=== PATIENT | female | born 1985 | race Caucasian/White ===

== ENCOUNTER 2016-08-25 18:58 | Emergency (ER) | payer OTHER ==
--- NOTE | 2016-08-25 20:11 | ED CLINICAL REPORT ---
Clinical Report - Physicians/Mid Levels [facility] [address] [place] [address] 08/25/2016 19:00 Patient: CARLY WOODS Time Seen: 22:00 Aug 25 2016. Arrived- By private vehicle. Historian- patient. HISTORY OF PRESENT ILLNESS Chief Complaint: PELVIC PAIN. 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 The symptoms are described as mild. No urinary frequency or urgency of urination. (Patient reports she is about 17 weeks , reports area of swelling on her labia and her vaginal region over the last 3-4 days, reports areas worsening. Denies any drainage. She has had multiple of such in the past, who usually self drained, and she had not had to seek care for any of them in the past. Denies any vaginal bleeding or contractions. Patient is under the care of a production inspector as well as Dr. Oh also. Denies any recent antibiotic or medication changes.). REVIEW OF SYSTEMS No vomiting or cough. All systems otherwise negative, except as recorded above. PAST HISTORY Problems: URI. Mother has alpha 1 protein disease but pt has not been checked. Contusion. LNMP - Last Normal Menstrual Period. . Additional Surgeries: Dilatation & Curettage. Medications: Vitamins Oral. Allergies: Sulfa Medications . SOCIAL HISTORY Former smoker. No drug use. ADDITIONAL NOTES The nursing notes have been reviewed. PHYSICAL EXAM Vital Signs: 08/25/2016 19:10 BP: 126/66. HR: 80. RR: 20. O2 saturation: 94%. Temp: 98.3 F. Pain level now: 9/10. Appearance: Alert. No acute distress. Neck: Neck supple. No lymphadenopathy. CVS: Heart sounds normal. Respiratory: No respiratory distress. Abdomen: Soft and nontender. Gravid uterus palpable to umbilicus. : Bimanual exam performed. (right lateral labia with swelling, tenderness, erythema, warmth, fluctulance. no protrusion into the vagina vault.). Skin: Skin warm. Normal skin color. Neuro: Oriented X 3. PROGRESS AND PROCEDURES Incision & Drainage of Abscess: Time: 2009. Time-out completed immediately before the procedure. The abscess is located in the bartholin's gland. The risks of the procedure, benefits and alternatives were explained. Consent was obtained. Local anesthesia provided using 1% lidocaine. A moderate amount of pus was drained. Word catheter was placed. Sample obtained for cultures. ( assisted with DR. Beverly, initial incicision and small lateral incicion made for penetration, Word cath placed with 3.5 cc of FLuid). Course of Care: Pt examined and procedure performed with DR. Beverly. Pt in no distress. Stable. Tachy with procedure 2/2 to pain. Afebrile. at this time can be managed outpatient for this, no complications. H/o similar. Pt has good f/u. Discussed opiod vs tylenol use, pt understands risk, cat c, given acute infection will rx for small quantity. 08/25/2016 20:30 BP: 128/65. HR: 81. RR: 22. O2 saturation: 96%. Patient is stable. Symptoms better. Patient/family counseled. Disposition: Discharged. CLINICAL IMPRESSION Bartholin's abscess with incision and drainage. INSTRUCTIONS (warm sitz bath antibiotics follow up in 1-2 days for removal of 3-4 mL of fluid from the WORD catheter, do not remove this your self). Warnings: Further evaluation is necessary. Prescription Medications: Hydrocodone/APAP 5mg / 325mg: take 1 orally every 6 hours as needed for pain. Dispense five (5). No refill. Augmentin 875 mg: take 1 tablet orally every 12 hours for 7 days. Dispense fourteen (14). No refills. Substitution is permissible. OTC Medications: Take acetaminophen (Tylenol, Datril, etc.) according to label instructions. Available over the counter. Follow-up: Follow up with your doctor Friday. (Electronically signed by Lucy Lorenzo P.A.-C 08/25/2016 22:31)
--- NOTE | 2016-08-25 20:11 | ED CLINICAL REPORT ---
Clinical Report - Physicians/Mid Levels [facility] [address] [place] [address] 08/25/2016 19:00 Patient: CARLY WOODS Time Seen: 22:00 Aug 25 2016. Arrived- By private vehicle. Historian- patient. HISTORY OF PRESENT ILLNESS Chief Complaint: PELVIC PAIN. 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 The symptoms are described as mild. No urinary frequency or urgency of urination. (Patient reports she is about 17 weeks , reports area of swelling on her labia and her vaginal region over the last 3-4 days, reports areas worsening. Denies any drainage. She has had multiple of such in the past, who usually self drained, and she had not had to seek care for any of them in the past. Denies any vaginal bleeding or contractions. Patient is under the care of a comprehensive ophthalmologist as well as Dr. Oh also. Denies any recent antibiotic or medication changes.). REVIEW OF SYSTEMS No vomiting or cough. All systems otherwise negative, except as recorded above. PAST HISTORY Problems: URI. Mother has alpha 1 protein disease but pt has not been checked. Contusion. LNMP - Last Normal Menstrual Period. . Additional Surgeries: Dilatation & Curettage. Medications: Vitamins Oral. Allergies: Sulfa Medications . SOCIAL HISTORY Former smoker. No drug use. ADDITIONAL NOTES The nursing notes have been reviewed. PHYSICAL EXAM Vital Signs: 08/25/2016 19:10 BP: 126/66. HR: 80. RR: 20. O2 saturation: 94%. Temp: 98.3 F. Pain level now: 9/10. Appearance: Alert. No acute distress. Neck: Neck supple. No lymphadenopathy. CVS: Heart sounds normal. Respiratory: No respiratory distress. Abdomen: Soft and nontender. Gravid uterus palpable to umbilicus. : Bimanual exam performed. (right lateral labia with swelling, tenderness, erythema, warmth, fluctulance. no protrusion into the vagina vault.). Skin: Skin warm. Normal skin color. Neuro: Oriented X 3. PROGRESS AND PROCEDURES Incision & Drainage of Abscess: Time: 2009. Time-out completed immediately before the procedure. The abscess is located in the bartholin's gland. The risks of the procedure, benefits and alternatives were explained. Consent was obtained. Local anesthesia provided using 1% lidocaine. A moderate amount of pus was drained. Word catheter was placed. Sample obtained for cultures. ( assisted with DR. Beverly, initial incicision and small lateral incicion made for penetration, Word cath placed with 3.5 cc of FLuid). Course of Care: Pt examined and procedure performed with DR. Beverly. Pt in no distress. Stable. Tachy with procedure 2/2 to pain. Afebrile. at this time can be managed outpatient for this, no complications. H/o similar. Pt has good f/u. Discussed opiod vs tylenol use, pt understands risk, cat c, given acute infection will rx for small quantity. 08/25/2016 20:30 BP: 128/65. HR: 81. RR: 22. O2 saturation: 96%. Patient is stable. Symptoms better. Patient/family counseled. Disposition: Discharged. CLINICAL IMPRESSION Bartholin's abscess with incision and drainage. INSTRUCTIONS (warm sitz bath antibiotics follow up in 1-2 days for removal of 3-4 mL of fluid from the WORD catheter, do not remove this your self). Warnings: Further evaluation is necessary. Prescription Medications: Hydrocodone/APAP 5mg / 325mg: take 1 orally every 6 hours as needed for pain. Dispense five (5). No refill. Augmentin 875 mg: take 1 tablet orally every 12 hours for 7 days. Dispense fourteen (14). No refills. Substitution is permissible. OTC Medications: Take acetaminophen (Tylenol, Datril, etc.) according to label instructions. Available over the counter. Follow-up: Follow up with your doctor Friday. (Electronically signed by Lucy Lorenzo P.A.-C 08/25/2016 22:31)
--- NOTE | 2016-08-25 20:11 | ED ORDER SUMMARY ---
..... Patient: CARLY WOODS OrderSheet [facility] VisitID: [id number] [address] [place] [address] 30y, F Registration Date/Time: 08/25/2016 ORDER SHEET Weight: 81.6 kg (stated) Allergies: Sulfa Medications GENERAL ORDERS: Culture, Wound Surface (Incision) (R. bartholin cyst) Urgent (20:09 08/25/2016 EKdarryllekatarzyna P.A.-C) (Ack 20:10 AMcQuoid ER Tech1) (20:11 HSoule) MEDICATION ORDERS: Tylenol PO 1,000 mg (NOW) (19:46 08/25/2016 Selma R.N. verbal order read back to Sunny Ruibn.AAugusto-C) (19:47 SRoberts R.N.) Augmentin PO 875 mg (NOW) (20:08 08/25/2016 Sunny P.A.-C) (Ack 20:11 HSoule) (20:26 TLewis R.N.) IV FLUIDS: ORDER SHEET NOTES: [Electronically signed by Minh Petersen R.N. (20:33 08/25/2016)] [Electronically signed by Lucy LorenzoAAugusto-Taryn (22:31 08/25/2016)] [Electronically locked/signed by Minh Petersen R.N. (20:33 08/25/2016)]
--- NOTE | 2016-08-25 20:11 | ED ORDER SUMMARY ---
..... Patient: CARLY WOODS OrderSheet [facility] VisitID: [id number] [address] [place] [address] 30y, F Registration Date/Time: 08/25/2016 ORDER SHEET Weight: 81.6 kg (stated) Allergies: Sulfa Medications GENERAL ORDERS: Culture, Wound Surface (Incision) (R. bartholin cyst) Urgent (20:09 08/25/2016 EKdarryllekatarzyna P.A.-C) (Ack 20:10 AMcQuoid ER Tech1) (20:11 HSoule) MEDICATION ORDERS: Tylenol PO 1,000 mg (NOW) (19:46 08/25/2016 Selma R.N. verbal order read back to Sunny Rubin.AAugusto-C) (19:47 SRoberts R.N.) Augmentin PO 875 mg (NOW) (20:08 08/25/2016 Sunny P.A.-C) (Ack 20:11 HSoule) (20:26 TLewis R.N.) IV FLUIDS: ORDER SHEET NOTES: [Electronically signed by Minh Petersen R.N. (20:33 08/25/2016)] [Electronically signed by Lucy LorenzoAAugusto-Taryn (22:31 08/25/2016)] [Electronically locked/signed by Minh Petersen R.N. (20:33 08/25/2016)]
--- NOTE | 2016-08-25 20:11 | ED NURSING NOTES ---
Clinical Report - Nurses Located Within [facility] [address] [place] [address] 08/25/2016 19:00 [id number] Triage time 19:05 Aug 25 2016. Acuity: LEVEL 4. Chief Complaint: SKIN PROBLEM and BOIL and . Bartholin Gland Cyst. 19:15 08/25/16. SEPSIS SCREEN: Sepsis Screen: negative. Negative (no infection suspected/documented). KALANI COMA SCORE: Kalani Coma Scale: 15- eyes open spontaneously (4); best verbal response- oriented x 4 (5); best motor response- obeys commands (6). --19:15 Nova Self 19:10 08/25/16. BP: 126/66. HR: 80. RR: 20. O2 saturation: 94% on room air. Temp: 98.3 F (oral). Pain level now: 02/09. --19:15 Nova Self. Weight: 81.6 kg stated. Height/Length: 62 inches Per Patient. BMI: 32.9. --19:14 Nova Self. Medications Vitamins Oral. --19:13 Nova Self. Medication/allergy information source: the patient. --19:15 Nova Self. Allergies Sulfa Medications . --19:13 Nova Self. History Arrived by private vehicle. Historian: patient. Accompanied by family. Primary physician (Josh). Reported as located on the genitalia (Right side). This is a recurrent problem. (3 days). It is described as painful. ( Patient reports history of bartholin gland cyst. She reports that they usually resolve on their own. She noticed one about one week ago that seemed to be getting more painful and irritated. She states she now feels it is about to burst. She has done salt soaks and heating pad with no relief.). PAST MEDICAL HX: Immunizations: up-to-date. Last normal menstrual period- Apr 28. SOCIAL HX: Former smoker, end date 05/2016. History of drug use: marijuana. No alcohol use. No infectious disease exposure. ABUSE ASSESSMENT: No report of abuse. FALL RISK ASSESSMENT: Fall risk assessment completed. No fall risk identified. NUTRITIONAL RISK ASSESSMENT: The nutritional risk assessment revealed no deficiencies. FUNCTIONAL ASSESSMENT: Functional assessment: no impairments noted. LEARNING NEEDS ASSESSMENT: The learning needs assessment revealed no barriers. SKIN INTEGRITY ASSESSMENT: Skin integrity risk assessment completed. No skin integrity risk identified. --19:15 Nova Self. PROBLEMS: URI. Mother has alpha 1 protein disease but pt has not been checked. Contusion. LNMP - Last Normal Menstrual Period. . --19:13 Nova Self. ADDITIONAL SURGERIES: Dilatation & Curettage. --19:13 Nova Self. Interventions ID band on patient. To treatment room. --19:15 Nova Self. PHYSICAL ASSESSMENT 19:15 08/25/16. GENERAL / NEURO / PSYCH: Alert. The patient does not appear to be in acute distress. Oriented X 4. HEENT: Mucous membranes are pink. RESPIRATORY: Respirations not labored. CVS: Pulses within normal limits. SKIN: Skin is warm and dry. Single skin lesion with erythema, tenderness and increased warmth in the right groin- Approx size of golf ball. --19:15 Nova Self. NURSING PROGRESS NOTES 19:16 08/25/16. Pulse oximeter and NIBP monitor placed on patient; monitor alarms on. Patient gowned. Warming measures: blanket applied. Reassurance given to the patient. Two patient identifiers checked. Call light placed in reach. Side rails up x 1. Bed placed in lowest position. Brakes of bed on. Patient ready for evaluation- chart flagged and ED physician notified. --19:16 Nova Self ( Charting tagged under Nova Self was in fact charted by writing RN, Cyndi Meyers.). --19:18 Cyndi Meyers 19:47 08/25/2016 Tylenol (Acetaminophen) PO 1000 mg given. Allergies verified and confirmed 5 rights. --19:47 Ines Powers, R.N. I & D: Incision and Drainage of abscess performed by PA. Assisted by one nurse. The abscess is located on the perineum. Preparation: Incision and Drainage tray set up with 1% lidocaine. Procedure; a large amount of pus was drained. Word catheter was placed. Sample obtained for cultures. Post-procedure: she was stable, no complications and bleeding controlled. Total time of assist / procedure: 15 minutes. --20:25 Cyndi Meyers 20:26 08/25/2016 Augmentin (Amoxicillin-Pot Clavulanate) PO 875 mg given. Allergies verified and confirmed 5 rights. --20:26 Minh Pteersen R.N. DISPOSITION / DISCHARGE Departure time: 2029. Condition at departure: improved. ( Pt was having increased pain and the PA was called back in to speak to the pt. Pt was given a script for pain meds. Pt was with a friend to get the script filled.). No learning barriers present. Discharge instructions provided and reviewed with the patient. Reviewed medication(s) side effects, precautions, dosing and course information. Prescription(s) given to the patient (hydrocodone antibioitic). Patient verbalized understanding. Written instructions provided in Swedish. The patient was discharged by the physician. She was discharged home and accompanied by gas prover. She left the Emergency Department ambulatory and via private vehicle. Twister Hand driving. --20:33 Minh Petersen R.N. 20:30 08/25/16. BP: 128/65. HR: 81. RR: 22. O2 saturation: 96%. Pain level now 8/10. --20:33 Minh Petersen R.N. Locked/Released at 08/25/2016 20:33 by Minh Petersen R.N.
--- NOTE | 2016-08-25 20:11 | ED NURSING NOTES ---
Clinical Report - Nurses [facility] [address] [place] [address] 08/25/2016 19:00 [id number] TRI[facility] Triage time 19:05 Aug 25 2016. Acuity: LEVEL 4. Chief Complaint: SKIN PROBLEM and BOIL and . Bartholin Gland Cyst. 19:15 08/25/16. SEPSIS SCREEN: Sepsis Screen: negative. Negative (no infection suspected/documented). KALANI COMA SCORE: Kalani Coma Scale: 15- eyes open spontaneously (4); best verbal response- oriented x 4 (5); best motor response- obeys commands (6). --19:15 Nova Self 19:10 08/25/16. BP: 126/66. HR: 80. RR: 20. O2 saturation: 94% on room air. Temp: 98.3 F (oral). Pain level now: 02/09. --19:15 Nova Self. Weight: 81.6 kg stated. Height/Length: 62 inches Per Patient. BMI: 32.9. --19:14 Nova Self. Medications Vitamins Oral. --19:13 Nova Self. Medication/allergy information source: the patient. --19:15 Nova Self. Allergies Sulfa Medications . --19:13 Nova Self. History Arrived by private vehicle. Historian: patient. Accompanied by family. Primary physician (Josh). Reported as located on the genitalia (Right side). This is a recurrent problem. (3 days). It is described as painful. ( Patient reports history of bartholin gland cyst. She reports that they usually resolve on their own. She noticed one about one week ago that seemed to be getting more painful and irritated. She states she now feels it is about to burst. She has done salt soaks and heating pad with no relief.). PAST MEDICAL HX: Immunizations: up-to-date. Last normal menstrual period- Apr 28. SOCIAL HX: Former smoker, end date 05/2016. History of drug use: marijuana. No alcohol use. No infectious disease exposure. ABUSE ASSESSMENT: No report of abuse. FALL RISK ASSESSMENT: Fall risk assessment completed. No fall risk identified. NUTRITIONAL RISK ASSESSMENT: The nutritional risk assessment revealed no deficiencies. FUNCTIONAL ASSESSMENT: Functional assessment: no impairments noted. LEARNING NEEDS ASSESSMENT: The learning needs assessment revealed no barriers. SKIN INTEGRITY ASSESSMENT: Skin integrity risk assessment completed. No skin integrity risk identified. --19:15 Nova Self. PROBLEMS: URI. Mother has alpha 1 protein disease but pt has not been checked. Contusion. LNMP - Last Normal Menstrual Period. . --19:13 Nova Self. ADDITIONAL SURGERIES: Dilatation & Curettage. --19:13 Nova Self. Interventions ID band on patient. To treatment room. --19:15 Nova Self. PHYSICAL ASSESSMENT 19:15 08/25/16. GENERAL / NEURO / PSYCH: Alert. The patient does not appear to be in acute distress. Oriented X 4. HEENT: Mucous membranes are pink. RESPIRATORY: Respirations not labored. CVS: Pulses within normal limits. SKIN: Skin is warm and dry. Single skin lesion with erythema, tenderness and increased warmth in the right groin- Approx size of golf ball. --19:15 Nova Self. NURSING PROGRESS NOTES 19:16 08/25/16. Pulse oximeter and NIBP monitor placed on patient; monitor alarms on. Patient gowned. Warming measures: blanket applied. Reassurance given to the patient. Two patient identifiers checked. Call light placed in reach. Side rails up x 1. Bed placed in lowest position. Brakes of bed on. Patient ready for evaluation- chart flagged and ED physician notified. --19:16 Nova Self ( Charting tagged under Nova Self was in fact charted by writing RN, Cyndi Meyers.). --19:18 Cyndi Meyers 19:47 08/25/2016 Tylenol (Acetaminophen) PO 1000 mg given. Allergies verified and confirmed 5 rights. --19:47 Ines Powers, R.N. I & D: Incision and Drainage of abscess performed by PA. Assisted by one nurse. The abscess is located on the perineum. Preparation: Incision and Drainage tray set up with 1% lidocaine. Procedure; a large amount of pus was drained. Word catheter was placed. Sample obtained for cultures. Post-procedure: she was stable, no complications and bleeding controlled. Total time of assist / procedure: 15 minutes. --20:25 Cyndi Meyers 20:26 08/25/2016 Augmentin (Amoxicillin-Pot Clavulanate) PO 875 mg given. Allergies verified and confirmed 5 rights. --20:26 Minh Petersen R.N. DISPOSITION / DISCHARGE Departure time: 2029. Condition at departure: improved. ( Pt was having increased pain and the PA was called back in to speak to the pt. Pt was given a script for pain meds. Pt was with a friend to get the script filled.). No learning barriers present. Discharge instructions provided and reviewed with the patient. Reviewed medication(s) side effects, precautions, dosing and course information. Prescription(s) given to the patient (hydrocodone antibioitic). Patient verbalized understanding. Written instructions provided in Romansh. The patient was discharged by the physician. She was discharged home and accompanied by butcher helper. She left the Emergency Department ambulatory and via private vehicle. Window Air Conditioner Installer driving. --20:33 Minh Petersen R.N. 20:30 08/25/16. BP: 128/65. HR: 81. RR: 22. O2 saturation: 96%. Pain level now 8/10. --20:33 Minh Petersen R.N. Locked/Released at 08/25/2016 20:33 by Minh Petersen R.N.
--- NOTE | 2016-08-25 22:31 | ED MED RECONCILIATION SUMMARY ---
Patient: CARLY WOODS Medication Reconciliation Report [facility] VisitID: [id number] [place] [address] 30y, F Registration Date/Time: 08/25/2016 Weight: 81.6 kg Height/Length: 62 in. BMI: 32.9 ALLERGIES: Sulfa Medications The patient's Home Medications are listed below: THE FOLLOWING MEDICATIONS NEED TO BE RECONCILED: Vitamins Oral The source(s) of the original Home Medication information: patient The following Medications were given to the patient in the Emergency Department: Tylenol [PO] PO 1000 mg, administered: 08/25/2016 7:47:00 PM Augmentin [PO] PO 875 mg, administered: 08/25/2016 8:26:00 PM The following Medications were prescribed to the patient: Take acetaminophen (Tylenol, Datril, etc.) according to label instructions. Available over the counter. -- Lucy Lorenzo, P.A.-Taryn Hydrocodone/APAP 5mg / 325mg: take 1 orally every 6 hours as needed for pain. Dispense five (5). No refill. -- Lucy Lorenzo, P.A.-C Augmentin 875 mg: take 1 tablet orally every 12 hours for 7 days. Dispense fourteen (14). No refills. Substitution is permissible. -- Lucy Lorenzo, P.A.-C
--- NOTE | 2016-08-25 22:31 | ED MED RECONCILIATION SUMMARY ---
Patient: CARLY WOODS Medication Reconciliation Report [facility] VisitID: [id number] [place] [address] 30y, F Registration Date/Time: 08/25/2016 Weight: 81.6 kg Height/Length: 62 in. BMI: 32.9 ALLERGIES: Sulfa Medications The patient's Home Medications are listed below: THE FOLLOWING MEDICATIONS NEED TO BE RECONCILED: Vitamins Oral The source(s) of the original Home Medication information: patient The following Medications were given to the patient in the Emergency Department: Tylenol [PO] PO 1000 mg, administered: 08/25/2016 7:47:00 PM Augmentin [PO] PO 875 mg, administered: 08/25/2016 8:26:00 PM The following Medications were prescribed to the patient: Take acetaminophen (Tylenol, Datril, etc.) according to label instructions. Available over the counter. -- Lucy Lorenzo, P.A.-Taryn Hydrocodone/APAP 5mg / 325mg: take 1 orally every 6 hours as needed for pain. Dispense five (5). No refill. -- Lucy Lorenzo, P.A.-C Augmentin 875 mg: take 1 tablet orally every 12 hours for 7 days. Dispense fourteen (14). No refills. Substitution is permissible. -- Lucy Lorenzo, P.A.-C
--- NOTE | 2016-08-25 22:31 | ED MAR SUMMARY ---
..... Medication Administration [facility] [address] [place] [address] Patient: CARLY WOODS Visit ID: [id number] 30y, F Weight: 81.6 kg Height/Length: 62 in BMI: 32.9 ALLERGIES: Sulfa Medications Given 19:47 08/25/2016 Ines Powers R.N. Medication Administered: TYLENOL [PO] (ACETAMINOPHEN), Dose: 1000 mg PO. Medication Ordered: Tylenol PO 1,000 mg (NOW). Given 20:26 08/25/2016 Minh Petersen R.N. Medication Administered: AUGMENTIN [PO] (AMOXICILLIN-POT CLAVULANATE), Dose: 875 mg PO. Medication Ordered: Augmentin PO 875 mg (NOW).
--- NOTE | 2016-08-25 22:31 | ED DISCHARGE INSTRUCTIONS ---
Patient: CARLY WOODS General Instructions [facility] VisitID: [id number] [place] [address] 30y, F Registration Date/Time: 08/25/2016 Bartholin's abscess with incision and drainage. INSTRUCTIONS (warm sitz bath antibiotics follow up in 1-2 days for removal of 3-4 mL of fluid from the WORD catheter, do not remove this your self). Warnings: Further evaluation is necessary. Prescription Medications: Hydrocodone/APAP 5mg / 325mg: take 1 orally every 6 hours as needed for pain. Dispense five (5). No refill. Augmentin 875 mg: take 1 tablet orally every 12 hours for 7 days. Dispense fourteen (14). No refills. Substitution is permissible. OTC Medications: Take acetaminophen (Tylenol, Datril, etc.) according to label instructions. Available over the counter. Follow-up: Follow up with your doctor Friday. ADDITIONAL INFORMATION Bartholin's Cyst [I&D] The Bartholin's glands are very small glands found inside the labia (vaginal lips). The glands produce fluid to help keep the vagina moist. When the opening of a Bartholins gland becomes blocked, the gland will swell and form a cyst. A cyst feels like a firm lump within the labia, from to 2 in size. It is usually not painful, unless it becomes infected. There are two common methods for draining the fluid and preventing return of the cyst: -- A small rubber tube (Word catheter) may have been inserted into the cyst. This will probably fall out on its own, or can be removed by your doctor in 2-3 weeks. -- A stitch may be used to hold the incision open and prevent it from healing closed too soon. Most infections of Bartholins cysts are due to bacteria that are normally present in the vagina. But, sometimes a sexually transmitted disease (STD) such as Gonorrhea can cause the infection. A culture test of the fluid can determine this. Home Care: 1) Sit in a tub filled with about 6 inches of very hot water. Allow the water to run in order to keep it hot for a total of 10-15 minutes. Repeat this three times a day until pain is relieved. 2) You may use acetaminophen (Tylenol) or ibuprofen (Motrin, Advil) to control pain, unless another medicine was prescribed. [ NOTE : If you have chronic liver or kidney disease or ever had a stomach ulcer or GI bleeding, talk with your doctor before using these medicines.] 3) Avoid sexual intercourse until all of the swelling and pain is gone, any tubes or stitches have been removed, and you have finished any antibiotics that were given. 4) If the cause of your infection is found to be due to an STD, it will be necessary for your sexual partner to be treated. He should contact his own doctor or clinic, or go to the local Public Health Department. Follow Up with your doctor or as advised by our staff. If a culture test was taken, you may call in two days for the result. If a rubber catheter was inserted and it falls out before your appointment to have it removed, call us or your doctor for advice. Get Prompt Medical Attention if any of the following occur: -- Increasing redness, pain or swelling of the labia -- Fever over 100.5' F (38.0' C) after two days of treatment -- Increasing pain in the lower abdomen -- New rash or joint pain Abscess [Incision & Drainage] An abscess (sometimes called a boil) occurs when bacteria get trapped under the skin and begin to grow. Pus forms inside the abscess as the body responds to the bacteria. An abscess can occur with an insect bite, ingrown hair, blocked oil gland, pimple, cyst, or puncture wound. Treatment of your abscess has required an incision to drain the pus. If the abscess pocket was large, a gauze packing may have been inserted. This will need to be removed and possibly replaced on your next visit. Antibiotics are not required in the treatment of a simple abscess, unless the infection is spreading into the skin around the wound (known as cellulitis). Healing of the wound will take about one to two weeks depending on the size of the abscess. Healthy tissue will grow from the bottom and sides of the opening until it seals over. Home Care: The wound may drain for the first two days. Cover the wound with a clean dry dressing. If the dressing becomes soaked with blood or pus, change it. If a gauze packing was placed inside the abscess cavity, you may be advised to remove it yourself. You may do this in the shower. Once the packing is removed, you should wash the area in the shower or bath 3 to 4 times a day, until the skin opening has closed. If you were prescribed antibiotics, take them as directed until they are all gone. You may use acetaminophen (Tylenol) or ibuprofen (Motrin, Advil) to control pain, unless another pain medicine was prescribed. [ NOTE: If you have liver disease or ever had a stomach ulcer, talk with your doctor before using these medicines.] Follow Up with your doctor as advised by our staff. If a gauze packing was inserted in your wound, it should be removed in 1-2 days. Check your wound every day for the signs of worsening infection listed below. Get Prompt Medical Attention if any of the following occur: Increasing redness or swelling Red streaks in the skin leading away from the wound Increasing local pain or swelling Continued pus draining from the wound two days after treatment Fever of 100.4F (38C) or higher, or as directed by your healthcare provider Hydrocodone Bitartrate, Acetaminophen Oral tablet What is this medicine? ACETAMINOPHEN; HYDROCODONE (a set a DARIN dena fen; clare droe KOE done) is a pain reliever. It is used to treat mild to moderate pain. How should I use this medicine? Take this medicine by mouth. Swallow it with a full glass of water. Follow the directions on the prescription label. If the medicine upsets your stomach, take the medicine with food or milk. Do not take more than you are told to take. Talk to your dextrine mixer regarding the use of this medicine in children. This medicine is not approved for use in children. What side effects may I notice from receiving this medicine? Side effects that you should report to your doctor or health infant caregiver as soon as possible: allergic reactions like skin rash, itching or hives, swelling of the face, lips, or tongue breathing problems confusion feeling faint or lightheaded, falls stomach pain yellowing of the eyes or skin Side effects that usually do not require medical attention (report to your doctor or health infant caregiver if they continue or are bothersome): nausea, vomiting stomach upset What may interact with this medicine? alcohol antihistamines isoniazid medicines for depression, anxiety, or psychotic disturbances medicines for sleep muscle relaxants naltrexone narcotic medicines (opiates) for pain phenobarbital ritonavir tramadol What if I miss a dose? If you miss a dose, take it as soon as you can. If it is almost time for your next dose, take only that dose. Do not take double or extra doses. Where should I keep my medicine? Keep out of the reach of children. This medicine can be abused. Keep your medicine in a safe place to protect it from theft. Do not share this medicine with anyone. Selling or giving away this medicine is dangerous and against the law. Store at room temperature between 15 and 30 degrees C (59 and 86 degrees F). Protect from light. Keep container tightly closed. Throw away any unused medicine after the expiration date. Discard unused medicine and used packaging carefully. Pets and children can be harmed if they find used or lost packages. What should I tell my health care provider before I take this medicine? They need to know if you have any of these conditions: brain tumor Crohn's disease, inflammatory bowel disease, or ulcerative colitis drink more than 3 alcohol-containing drinks per day drug abuse or addiction head injury heart or circulation problems kidney disease or problems going to the bathroom liver disease lung disease, asthma, or breathing problems an unusual or allergic reaction to acetaminophen, hydrocodone, other opioid analgesics, other medicines, foods, dyes, or preservatives or trying to get breast-feeding What should I watch for while using this medicine? Tell your doctor or health infant caregiver if your pain does not go away, if it gets worse, or if you have new or a different type of pain. You may develop tolerance to the medicine. Tolerance means that you will need a higher dose of the medicine for pain relief. Tolerance is normal and is expected if you take the medicine for a long time. Do not suddenly stop taking your medicine because you may develop a severe reaction. Your body becomes used to the medicine. This does NOT mean you are addicted. Addiction is a behavior related to getting and using a drug for a non-medical reason. If you have pain, you have a medical reason to take pain medicine. Your doctor will tell you how much medicine to take. If your doctor wants you to stop the medicine, the dose will be slowly lowered over time to avoid any side effects. You may get drowsy or dizzy when you first start taking the medicine or change doses. Do not drive, use machinery, or do anything that may be dangerous until you know how the medicine affects you. Stand or sit up slowly. There are different types of narcotic medicines (opiates) for pain. If you take more than one type at the same time, you may have more side effects. Give your health care provider a list of all medicines you use. Your doctor will tell you how much medicine to take. Do not take more medicine than directed. Call emergency for help if you have problems breathing. The medicine will cause constipation. Try to have a bowel movement at least every 2 to 3 days. If you do not have a bowel movement for 3 days, call your doctor or health infant caregiver. Too much acetaminophen can be very dangerous. Do not take Tylenol (acetaminophen) or medicines that contain acetaminophen with this medicine. Many non-prescription medicines contain acetaminophen. Always read the labels carefully. You have been given the following additional information: Bartholin's Cyst (I And D) Abscess, Incision And Drainage Hydrocodone Bitartrate, Acetaminophen Oral tablet (Electronically signed by Lucy Lorenzo P.A.-C 08/25/2016 22:31)
--- NOTE | 2016-08-25 22:31 | ED MAR SUMMARY ---
..... Medication Administration Record [facility] [address] [place] [address] Patient: CARLY WOODS Visit ID: [id number] 30y, F Weight: 81.6 kg Height/Length: 62 in BMI: 32.9 ALLERGIES: Sulfa Medications Given 19:47 08/25/2016 Ines Powers R.N. Medication Administered: TYLENOL [PO] (ACETAMINOPHEN), Dose: 1000 mg PO. Medication Ordered: Tylenol PO 1,000 mg (NOW). Given 20:26 08/25/2016 Minh Petersen R.N. Medication Administered: AUGMENTIN [PO] (AMOXICILLIN-POT CLAVULANATE), Dose: 875 mg PO. Medication Ordered: Augmentin PO 875 mg (NOW).
== END 2016-08-25 20:30 | disposition home or self-care (01) ==
LOC: ED SRH 18:58
DX: O99.89 Other specified diseases and conditions complicating pregnancy, childbirth and the puerperium (principal); N75.1 Abscess of Bartholin's gland; R10.2 Pelvic and perineal pain; Z3A.17 17 weeks gestation of pregnancy; Z88.2 Allergy status to sulfonamides; Z87.891 Personal history of nicotine dependence
CPT/HCPCS: 83205; 90131; 90309; 90627

== ENCOUNTER 2016-08-27 08:10 | Emergency (ER) | payer OTHER ==
--- NOTE | 2016-08-27 08:51 | ED NURSING NOTES ---
Clinical Report - Nurses [facility] [address] [place] [address] 08/27/2016 8:12 Patient: CARLY WOODS TRIAGE Acuity: LEVEL 4. Chief Complaint: RECHECK OF WOUND. Alert. No acute distress. SEPSIS SCREEN: Sepsis Screen. Negative (no infection suspected/documented). KALANI COMA SCORE: Kalani Coma Scale: 15- eyes open spontaneously (4); best verbal response- oriented x 4 (5); best motor response- obeys commands (6). --08:23 Lizzie Melgoza R.N. 08:17 08/27/16. BP: 123/70. HR: 77. RR: 18. O2 saturation: 100% on room air. Temp: 97.7 F (oral). Pain level now: 5/10. --08:23 Lizzie Melgoza R.N. Weight: 81.6 kg stated. Height/Length: 62 inches Per Patient. BMI: 32.9. --08:21 Lizzie Melgoza R.N. Medications Vitamins Oral. --08:20 Lizzie Melgoza R.N. Augmentin Oral. --08:21 Lizzie Melgoza R.N. Hydrocodone-Acetaminophen Oral. --08:21 Lizzie Melgoza R.N. Medication/allergy information source: the patient. --08:23 Lizzie Melgoza R.N. Allergies Sulfa Medications . --08:20 Lizzie Melgoza R.N. History Arrived by private vehicle, and accompanied by mother. Primary physician ([facility]). Previous treatment: Previously seen in ED. Incision and drainage of abscess performed. ( Pt had bartholin's cyst drained in this ED two days ago and was instructed to return here to have drainage catheter removed.). PAST MEDICAL HX: Last normal menstrual period- Apr 28 2016. Confirmed . In 2nd trimester. SOCIAL HX: Former smoker, end date 06/2016 (cigarette). History of occasional drug use: marijuana. No alcohol use. FALL RISK ASSESSMENT: Fall risk assessment completed. No fall risk identified. NUTRITIONAL RISK ASSESSMENT: The nutritional risk assessment revealed no deficiencies. FUNCTIONAL ASSESSMENT: Functional assessment: no impairments noted. LEARNING NEEDS ASSESSMENT: The learning needs assessment revealed no barriers. SKIN INTEGRITY ASSESSMENT: Skin integrity risk assessment completed. No skin integrity risk identified. --08:23 Lizzie Melgoza R.N. PROBLEMS: Bartholin's Abscess. URI. Mother has alpha 1 protein disease but pt has not been checked. Contusion. LNMP - Last Normal Menstrual Period. . --08:21 Lizzie Melgoza R.N. ADDITIONAL SURGERIES: Dilatation & Curettage. --08:21 Lizzie Melgoza R.N. Assessment GENERAL / NEURO / PSYCH: Alert. Oriented X 4. Appears in no acute distress. Patient appears calm and cooperative. RESPIRATORY: Respirations not labored. CVS: Capillary refill less than 2 seconds. GI / : Abdomen soft and nontender. SKIN: Mucous membranes are pink. Skin is warm and dry. --08:23 Lizzie Melgoza R.N. Interventions ID band on patient. To treatment room. Ambulatory. Gowned. --08:23 Lizzie Melgoza R.N. PHYSICAL ASSESSMENT 08:24 08/27/16. Ambulatory to room. GENERAL / NEURO / PSYCH: Alert. Oriented X 4. Appears in no acute distress. Patient's nutrition appears within normal limits. EXTREMITIES: Capillary refill is less than 2 seconds in the extremities. SKIN: Skin is warm and dry. --08:24 Lizzie Melgoza R.N. NURSING PROGRESS NOTES 08:24 08/27/16. Patient gowned. Two patient identifiers checked. Call light placed in reach. Side rails up x 1. Bed placed in lowest position. Patient ready for evaluation- ED physician notified. --08:24 Lizzie Melgoza R.N. 08:45. Drain removed from wound (assisted Dr Beverly in removal of drain. 3cc aspirated from drain.). --08:53 Ailyn Queen R.N. DISPOSITION / DISCHARGE Departure time: 08:50 Aug 27 2016. Condition at departure: improved and stable. No learning barriers present. Discharge instructions provided and reviewed with the patient. Patient verbalized understanding. Written instructions provided in Chinese. The patient was discharged by the physician. She was discharged home and accompanied by parent. She left the Emergency Department ambulatory and via private vehicle. Parent driving. --09:00 Lizzie Melgoza R.N. Locked/Released at 08/27/2016 9:00 by Lizzie Melgoza R.N.
--- NOTE | 2016-08-27 08:51 | ED CLINICAL REPORT ---
Clinical Report - Physicians/Mid Levels [facility] [address] [place] [address] 08/27/2016 8:12 Patient: CARLY WOODS Time Seen: 08:27. Arrived- By private vehicle. Historian- patient. HISTORY OF PRESENT ILLNESS Treated in emergency department two days ago. Chief Complaint: WOUND and ABSCESS RECHECK. The patient has no complaints since the procedure was performed. Previous emergency department treatment: Incision and Drainage of abscess and prescription antibiotic given. (he patient was seen here 2 days ago for a right labial Bartholin's gland abscess. She underwent incision and drainage and placement of a Word catheter at that time. She presents today requesting a catheter be removed. She has only had scant drainage since that it is feeling better and has been tolerating the antibiotics well.). REVIEW OF SYSTEMS No chills, fever, sweats, calf pain or chest pain. No cough, difficulty breathing, pedal edema, palpitations or abdominal pain. No diarrhea, nausea, vomiting or urinary problems. All systems otherwise negative, except as recorded above. PAST HISTORY She is currently . ADDITIONAL NOTES The nursing notes have been reviewed. PHYSICAL EXAM Vital Signs: 08/27/2016 08:17 BP: 123/70. HR: 77. RR: 18. O2 saturation: 100%. Temp: 97.7 F. Pain level now: 5/10. Have been reviewed. Appearance: Alert. Head: No swelling of head. Eyes: Pupils equal, round and reactive to light. ENT: Pharynx normal. Neck: Painless ROM. Respiratory: Breath sounds normal. Abdomen: Soft and nontender. Gravid uterus. No organomegaly. Back: ROM normal. : (Word catheter is in place and a small incision of her right labia. No drainage noted, mild tenderness noted. A female life enrichment specialist was present.). PROGRESS AND PROCEDURES Course of Care: Her Word catheter was removed after 3 cc of normal saline was removed from its bulb. Patient is stable. Patient/family counseled. Old medical records ordered. Disposition: Discharged. Condition: stable. CLINICAL IMPRESSION Abscess check. Single healing Bartholin's abscess. INSTRUCTIONS Warm soaks to affected area (3-6 times daily for 15-20 minutes at a time). Warnings: COMPLICATIONS: Complications from this condition include: possible infection. Future problems may include infection, scarring and pain. INFECTION: Watch for signs of infection (increasing heat and redness, pus-like drainage, swelling, or increased pain). Return or see your doctor if these signs occur. GENERAL WARNINGS: Return or contact your physician immediately if your condition worsens or changes unexpectedly, if not improving as expected, or if other problems arise. Follow-up: Follow up with a continuous churn buttermaker as scheduled. Understanding of the discharge instructions verbalized by patient. (Electronically signed by Fazal Beverly MD 08/27/2016 9:12)
--- NOTE | 2016-08-27 08:51 | ED CLINICAL REPORT ---
Clinical Report - Physicians/Mid Levels [facility] [address] [place] [address] 08/27/2016 8:12 Patient: CARLY WOODS Time Seen: 08:27. Arrived- By private vehicle. Historian- patient. HISTORY OF PRESENT ILLNESS Treated in emergency department two days ago. Chief Complaint: WOUND and ABSCESS RECHECK. The patient has no complaints since the procedure was performed. Previous emergency department treatment: Incision and Drainage of abscess and prescription antibiotic given. (he patient was seen here 2 days ago for a right labial Bartholin's gland abscess. She underwent incision and drainage and placement of a Word catheter at that time. She presents today requesting a catheter be removed. She has only had scant drainage since that it is feeling better and has been tolerating the antibiotics well.). REVIEW OF SYSTEMS No chills, fever, sweats, calf pain or chest pain. No cough, difficulty breathing, pedal edema, palpitations or abdominal pain. No diarrhea, nausea, vomiting or urinary problems. All systems otherwise negative, except as recorded above. PAST HISTORY She is currently . ADDITIONAL NOTES The nursing notes have been reviewed. PHYSICAL EXAM Vital Signs: 08/27/2016 08:17 BP: 123/70. HR: 77. RR: 18. O2 saturation: 100%. Temp: 97.7 F. Pain level now: 5/10. Have been reviewed. Appearance: Alert. Head: No swelling of head. Eyes: Pupils equal, round and reactive to light. ENT: Pharynx normal. Neck: Painless ROM. Respiratory: Breath sounds normal. Abdomen: Soft and nontender. Gravid uterus. No organomegaly. Back: ROM normal. : (Word catheter is in place and a small incision of her right labia. No drainage noted, mild tenderness noted. A female child support investigator was present.). PROGRESS AND PROCEDURES Course of Care: Her Word catheter was removed after 3 cc of normal saline was removed from its bulb. Patient is stable. Patient/family counseled. Old medical records ordered. Disposition: Discharged. Condition: stable. CLINICAL IMPRESSION Abscess check. Single healing Bartholin's abscess. INSTRUCTIONS Warm soaks to affected area (3-6 times daily for 15-20 minutes at a time). Warnings: COMPLICATIONS: Complications from this condition include: possible infection. Future problems may include infection, scarring and pain. INFECTION: Watch for signs of infection (increasing heat and redness, pus-like drainage, swelling, or increased pain). Return or see your doctor if these signs occur. GENERAL WARNINGS: Return or contact your physician immediately if your condition worsens or changes unexpectedly, if not improving as expected, or if other problems arise. Follow-up: Follow up with a parcel post officer as scheduled. Understanding of the discharge instructions verbalized by patient. (Electronically signed by Fazal Beverly MD 08/27/2016 9:12)
--- NOTE | 2016-08-27 09:13 | ED MED RECONCILIATION SUMMARY ---
Patient: CARLY WOODS Medication Reconciliation Report [facility] VisitID: [id number] [address] [place] [address] 30y, F Registration Date/Time: 08/27/2016 Weight: 81.6 kg Height/Length: 62 in. BMI: 32.9 ALLERGIES: Sulfa Medications The patient's Home Medications are listed below: THE FOLLOWING MEDICATIONS NEED TO BE RECONCILED: Augmentin Oral Hydrocodone-Acetaminophen Oral Vitamins Oral The source(s) of the original Home Medication information: patient The following Medications were given to the patient in the Emergency Department: None. The following Medications were prescribed to the patient: None.
--- NOTE | 2016-08-27 09:13 | ED DISCHARGE INSTRUCTIONS ---
Patient: CARLY WOODS General Instructions [facility] VisitID: [id number] [place] [address] 30y, F Registration Date/Time: 08/27/2016 Abscess check. Single healing Bartholin's abscess. INSTRUCTIONS Warm soaks to affected area (3-6 times daily for 15-20 minutes at a time). Warnings: COMPLICATIONS: Complications from this condition include: possible infection. Future problems may include infection, scarring and pain. INFECTION: Watch for signs of infection (increasing heat and redness, pus-like drainage, swelling, or increased pain). Return or see your doctor if these signs occur. GENERAL WARNINGS: Return or contact your physician immediately if your condition worsens or changes unexpectedly, if not improving as expected, or if other problems arise. Follow-up: Follow up with a scientist engineer as scheduled. Understanding of the discharge instructions verbalized by patient. ADDITIONAL INFORMATION Abscess (Antibiotic Treatment Only) An abscess (sometimes called a boil) occurs when bacteria get trapped under the skin and begin to grow. Pus forms inside the abscess as the body responds to the bacteria. An abscess can occur with an insect bite, ingrown hair, blocked oil gland, pimple, cyst, or puncture wound. In the early stages, redness and tenderness are the only symptoms. Sometimes, this stage can be treated with antibiotics alone. If the abscess does not respond to antibiotic treatment, it will need to be drained with a small cut, under local anesthesia. Home care The following will help you care for your abscess at home: Soak the wound in hot water or apply hot packs (small towel soaked in hot water) to the area for 20 minutes at a time. Do this three to four times a day. Apply antibiotic cream or ointment onto the skin 3-4 times a day, unless something else was prescribed. Some ointments include an antibiotic plus a local pain reliever. If your doctor prescribed antibiotics, do not stop taking this medication until you have finished the prescribed course or the doctor tells you to stop. You may use an haun-hce-[id number] pain medication to control pain, unless another pain medicine was prescribed. If you have chronic liver or kidney disease or ever had a stomach ulcer or GI bleeding, talk with your doctor before using these any of these. Follow-up care Follow up with your health care provider as advised by our staff. Look at your wound each day for the signs of worsening infection listed below. When to seek medical care Get prompt medical attention if any of the following occur: An increase in redness or swelling Red streaks in the skin leading away from the abscess An increase in local pain or swelling Fever of 100.4F (38C) or higher, or as directed by your health care provider Pus or fluid coming from the abscess You have been given the following additional information: Abscess, Antiobiotic Treatment Only (Electronically signed by Fazal Beverly MD 08/27/2016 9:12)
--- NOTE | 2016-08-27 09:13 | ED MAR SUMMARY ---
..... Medication Administration Record [facility] [address] [place], [place] [id number] Patient: CARLY WOODS Visit ID: [id number] 30y, F Weight: 81.6 kg Height/Length: 62 in BMI: 32.9 ALLERGIES: Sulfa Medications
--- NOTE | 2016-08-27 09:13 | ED MAR SUMMARY ---
..... Medication Administration Record [facility] [address] [place], [place] [id number] Patient: CARLY WOODS Visit ID: [id number] 30y, F Weight: 81.6 kg Height/Length: 62 in BMI: 32.9 ALLERGIES: Sulfa Medications
--- NOTE | 2016-08-27 09:13 | ED DISCHARGE INSTRUCTIONS ---
Patient: CARLY WOODS General Instructions [facility] VisitID: [id number] [place] [address] 30y, F Registration Date/Time: 08/27/2016 Abscess check. Single healing Bartholin's abscess. INSTRUCTIONS Warm soaks to affected area (3-6 times daily for 15-20 minutes at a time). Warnings: COMPLICATIONS: Complications from this condition include: possible infection. Future problems may include infection, scarring and pain. INFECTION: Watch for signs of infection (increasing heat and redness, pus-like drainage, swelling, or increased pain). Return or see your doctor if these signs occur. GENERAL WARNINGS: Return or contact your physician immediately if your condition worsens or changes unexpectedly, if not improving as expected, or if other problems arise. Follow-up: Follow up with a collar stitcher as scheduled. Understanding of the discharge instructions verbalized by patient. ADDITIONAL INFORMATION Abscess (Antibiotic Treatment Only) An abscess (sometimes called a boil) occurs when bacteria get trapped under the skin and begin to grow. Pus forms inside the abscess as the body responds to the bacteria. An abscess can occur with an insect bite, ingrown hair, blocked oil gland, pimple, cyst, or puncture wound. In the early stages, redness and tenderness are the only symptoms. Sometimes, this stage can be treated with antibiotics alone. If the abscess does not respond to antibiotic treatment, it will need to be drained with a small cut, under local anesthesia. Home care The following will help you care for your abscess at home: Soak the wound in hot water or apply hot packs (small towel soaked in hot water) to the area for 20 minutes at a time. Do this three to four times a day. Apply antibiotic cream or ointment onto the skin 3-4 times a day, unless something else was prescribed. Some ointments include an antibiotic plus a local pain reliever. If your doctor prescribed antibiotics, do not stop taking this medication until you have finished the prescribed course or the doctor tells you to stop. You may use an aglt-amt-vclepzh pain medication to control pain, unless another pain medicine was prescribed. If you have chronic liver or kidney disease or ever had a stomach ulcer or GI bleeding, talk with your doctor before using these any of these. Follow-up care Follow up with your health care provider as advised by our staff. Look at your wound each day for the signs of worsening infection listed below. When to seek medical care Get prompt medical attention if any of the following occur: An increase in redness or swelling Red streaks in the skin leading away from the abscess An increase in local pain or swelling Fever of 100.4F (38C) or higher, or as directed by your health care provider Pus or fluid coming from the abscess You have been given the following additional information: Abscess, Antiobiotic Treatment Only (Electronically signed by Fazal Beverly MD 08/27/2016 9:12)
--- NOTE | 2016-08-27 09:13 | ED MED RECONCILIATION SUMMARY ---
Patient: CARLY WOODS Medication Reconciliation Report [facility] VisitID: [id number] [address] [place] [address] 30y, F Registration Date/Time: 08/27/2016 Weight: 81.6 kg Height/Length: 62 in. BMI: 32.9 ALLERGIES: Sulfa Medications The patient's Home Medications are listed below: THE FOLLOWING MEDICATIONS NEED TO BE RECONCILED: Augmentin Oral Hydrocodone-Acetaminophen Oral Vitamins Oral The source(s) of the original Home Medication information: patient The following Medications were given to the patient in the Emergency Department: None. The following Medications were prescribed to the patient: None.
== END 2016-08-27 08:50 | disposition home or self-care (01) ==
LOC: ED SRH 08:10
DX: N75.1 Abscess of Bartholin's gland (principal); Z33.1 Pregnant state, incidental

== ENCOUNTER 2016-08-29 17:19 | Emergency (ER) | payer OTHER ==
--- NOTE | 2016-08-29 18:08 | ED CLINICAL REPORT ---
Clinical Report - Physicians/Mid Levels [facility] [address] [place] [address] 08/29/2016 17:19 Patient: CARLY WOODS Time Seen: 17:22; upon arrival, initial patient contact, initial documentation, patient care assumed. Arrived- By private vehicle. Historian- patient. HISTORY OF PRESENT ILLNESS Treated in emergency department two days ago. Chief Complaint: ABSCESS RECHECK. The patient has experienced pain since the procedure was performed. Previous emergency department treatment: Incision and Drainage of abscess and prescription antibiotic given. Prescription antibiotic- Augmentin. (txed here on 08/25, I&D done, word catheter placed, came back on 08/27, word catheter removed, no pus ever came out, area stayed swollen and it is getting bigger and more painful, very afraid to have procedure done, because wasn't numb before, felt both times they cut, nothing came out, the word catheter was very painful). REVIEW OF SYSTEMS No fever. All systems otherwise negative, except as recorded above. PAST HISTORY See nurses notes. Problems: URI. Mother has alpha 1 protein disease but pt has not been checked. Contusion. LNMP - Last Normal Menstrual Period. . Additional Surgeries: Dilatation & Curettage. SOCIAL HISTORY Former smoker. History of occasional drug use: marijuana. No alcohol use. No recent travel. Is a local resident. FAMILY HISTORY No significant family medical history. ADDITIONAL NOTES The nursing notes have been reviewed with agreement regarding the chief complaint, HPI, ROS, PMH and patient medications and allergies. PHYSICAL EXAM Vital Signs: 08/29/2016 17:26 BP: 135/85. HR: 107. RR: 18. O2 saturation: 100%. Temp: 98.6 F. Have been reviewed as abnormal and appear to be correct. Blood pressure normal. Tachycardic. Respiratory rate normal. Temperature normal. Oxygen saturation normal. Appearance: Alert. Oriented X3. Anxious. No acute distress. (tech Paola in during exam and procedure, for mineral surveyor and assistance). Eyes: Pupils equal, round and reactive to light. EOM intact. Skin: Large area of swelling with tenderness to the area of the genitalia (R labia majora). No heat or lymphangitis. No healing cellulitis. No healing abscess. Extremities: Normal inspection. Extremities atraumatic. No lower extremity edema. Neuro: Oriented X 3. No motor deficit. No sensory deficit. PROGRESS AND PROCEDURES Incision & Drainage of Abscess: The abscess is located in the labia (Right). The risks of the procedure, benefits and alternatives were explained. Consent was obtained. Local anesthesia provided using 1% lidocaine. Skin cleansed with Betadine. The abscess was incised with a #11 surgical blade. A large amount of pus was drained. Cavity was irrigated with saline and packed with gauze. Estimated blood loss: 30 mL. ( pt tolerated procedure well without issues, and thanked me several times stating that was best she has felt since Friday when she got it). Course of Care: pt has brief hemanth, nothing alarming, see report for full details. Patient counseled in person regarding the patient's stable condition and diagnosis. 18:07. Differential Diagnosis: Other possible considerations: bartholin gland abscess, cyst, cellulitis. Above considerations are based on history and physical exam. Differential diagnosis was discussed with patient. Disposition: Discharged home in good and improved condition (18:07). Condition: good and stable. CLINICAL IMPRESSION Single deep Bartholin's abscess with incision and drainage. INSTRUCTIONS Warnings: GENERAL WARNINGS: Return or contact your physician immediately if your condition worsens or changes unexpectedly, if not improving as expected, or if other problems arise. Specifically return if problem worsens. Follow-up: Follow up with your doctor in two days as needed and for packing removal. Call for an appointment. Summary of care provided to patient. Understanding of the discharge instructions verbalized by patient. Follow-up with: Jamal Apodaca MD, Obstetrics/Gynecology, , [facility], [address] [place] [address] Follow up in about two days as needed. Call for an appointment. Summary of care provided to patient. (Electronically signed by Sariah Malik A.R.N.P. 08/29/2016 19:14)
--- NOTE | 2016-08-29 18:08 | ED NURSING NOTES ---
Clinical Report - Nurses [facility] [address] [place] [address] 08/29/2016 17:19 [id number] Triage time 17:Aug 29 2016. Acuity: LEVEL 3. Chief Complaint: SKIN PROBLEM. KALANI COMA SCORE: Kalani Coma Scale: 15- eyes open spontaneously (4); best verbal response- oriented x 4 (5); best motor response- obeys commands (6). --17:35 Mattie Michaels R.N. 17:26 08/29/16. BP: 135/85. HR: 107. RR: 18. O2 saturation: 100%. Temp: 98.6 F. Pain level now 9/10. --17:35 Mattie Michaels R.N. Weight: 81.6 kg stated. Height/Length: 62 inches Per Patient. BMI: 32.9. --17:32 Mattie Michaels R.N. Medications Augmentin Oral. Hydrocodone-Acetaminophen Oral. Vitamins Oral. --17:28 Mattie Michaels R.N. Allergies Sulfa Medications . --17:28 Mattie Michaels R.N. History Arrived by private vehicle. Historian: patient. Accompanied by family. Primary physician (). Reported as located on the right groin. Onset. (All week long). No fever, muscle aches, headache, cough or difficulty breathing. No itching or weakness. PAST MEDICAL HX: Immunizations: up-to-date. Currently . In 2nd trimester. SOCIAL HX: No infectious disease exposure. SELF HARM ASSESSMENT: A self harm assessment was performed. The patient answered "no" to the question "Have you recently felt down, depressed, or hopeless?" and "Do you have thoughts of harming or killing yourself?". FALL RISK ASSESSMENT: Fall risk assessment completed. No fall risk identified. NUTRITIONAL RISK ASSESSMENT: The nutritional risk assessment revealed no deficiencies. FUNCTIONAL ASSESSMENT: Functional assessment: no impairments noted. LEARNING NEEDS ASSESSMENT: The learning needs assessment revealed no barriers. ABUSE ASSESSMENT: Abuse assessment: (yes) The patient was asked "Do you feel safe in your home?". SKIN INTEGRITY ASSESSMENT: Skin integrity risk assessment completed. No skin integrity risk identified. --17:35 Mattie Michaels R.N. PROBLEMS: Abscess Check. Healing Abscess. Bartholin's Abscess. URI. Mother has alpha 1 protein disease but pt has not been checked. Contusion. LNMP - Last Normal Menstrual Period. . --17:28 Mattie Michaels R.N. ADDITIONAL SURGERIES: Dilatation & Curettage. --17:28 Mattie Michaels R.N. Interventions ID and allergy band on patient. --17:35 Mattie Michaesl R.N. PHYSICAL ASSESSMENT Ambulatory to room. GENERAL / NEURO / PSYCH: Alert. Appears in pain and anxious. Oriented X 4. HEENT: Pupils equal, round and reactive to light. Mucous membranes are pink. RESPIRATORY: Respirations not labored. Breath sounds within normal limits. CVS: Capillary refill less than 2 seconds. Pulses within normal limits. GI / : Abdomen nontender. SKIN: Skin is warm and dry. ( Cyst on labia). --17:36 Mattie Michaels R.N. NURSING PROGRESS NOTES 17:41 08/29/2016 Lidocaine Injection Injectable 1 % given. Allergies verified and confirmed 5 rights. --17:51 Mattie Michaels R.N. DISPOSITION / DISCHARGE Departure time: 18:Aug 29 2016. Condition at departure: improved. No learning barriers present. Discharge instructions provided and reviewed with the patient and spouse. Reviewed warnings. Reviewed medication(s). Treatments reviewed. Reviewed referrals. Patient verbalized understanding. Written instructions provided in German. The patient was discharged home and accompanied by spouse. She left the Emergency Department ambulatory and via private vehicle. Spouse driving. --18:17 Mattie Michaels R.N. 18:17 08/29/16. Pain level now 07/12. --18:17 Mattie Michaels R.N. 17:26 08/29/16. BP: 135/85. HR: 107. RR: 18. O2 saturation: 100%. Temp: 98.6 F. Pain level now 02/09. --18:17 Mattie Michaels R.N. Locked/Released at 09/01/2016 19:21 by Mattie Michaels R.N.
--- NOTE | 2016-08-29 18:08 | ED ORDER SUMMARY ---
..... Patient: CARLY WOODS OrderSheet [facility] VisitID: [id number] [address] [place] [address] 30y, F Registration Date/Time: 08/29/2016 ORDER SHEET Weight: 81.6 kg (stated) Allergies: Sulfa Medications GENERAL ORDERS: I&D Tray (17:35 08/29/2016 HBivens A.R.N.P.) (17:51 LWhalen R.N.) MEDICATION ORDERS: Lidocaine Injection 1% plain (place at bedside) (17:35 08/29/2016 HBivens A.R.N.P.) (17:51 LWhalen R.N.) IV FLUIDS: ORDER SHEET NOTES: [Electronically signed by Sariah MalikR.N.P. (19:14 08/29/2016)] [Electronically signed by Mattie Michaels R.N. (19:21 09/01/2016)] [Electronically locked/signed by Mattie Michaels R.N. (19:21 09/01/2016)]
--- NOTE | 2016-08-29 18:08 | ED ORDER SUMMARY ---
..... Patient: CARLY WOODS OrderSheet [facility] VisitID: [id number] [address] [place] [address] 30y, F Registration Date/Time: 08/29/2016 ORDER SHEET Weight: 81.6 kg (stated) Allergies: Sulfa Medications GENERAL ORDERS: I&D Tray (17:35 08/29/2016 HBivens A.R.N.P.) (17:51 LWhalen R.N.) MEDICATION ORDERS: Lidocaine Injection 1% plain (place at bedside) (17:35 08/29/2016 HBivens A.R.N.P.) (17:51 LWhalen R.N.) IV FLUIDS: ORDER SHEET NOTES: [Electronically signed by Sariah MalikR.N.P. (19:14 08/29/2016)] [Electronically signed by Mattie Michaels R.N. (19:21 09/01/2016)] [Electronically locked/signed by Mattie Michaels R.N. (19:21 09/01/2016)]
--- NOTE | 2016-08-29 18:08 | ED CLINICAL REPORT ---
Clinical Report - Physicians/Mid Levels [facility] [address] [place] [address] 08/29/2016 17:19 Patient: CARLY WOODS Time Seen: 17:22; upon arrival, initial patient contact, initial documentation, patient care assumed. Arrived- By private vehicle. Historian- patient. HISTORY OF PRESENT ILLNESS Treated in emergency department two days ago. Chief Complaint: ABSCESS RECHECK. The patient has experienced pain since the procedure was performed. Previous emergency department treatment: Incision and Drainage of abscess and prescription antibiotic given. Prescription antibiotic- Augmentin. (txed here on 08/25, I&D done, word catheter placed, came back on 08/27, word catheter removed, no pus ever came out, area stayed swollen and it is getting bigger and more painful, very afraid to have procedure done, because wasn't numb before, felt both times they cut, nothing came out, the word catheter was very painful). REVIEW OF SYSTEMS No fever. All systems otherwise negative, except as recorded above. PAST HISTORY See nurses notes. Problems: URI. Mother has alpha 1 protein disease but pt has not been checked. Contusion. LNMP - Last Normal Menstrual Period. . Additional Surgeries: Dilatation & Curettage. SOCIAL HISTORY Former smoker. History of occasional drug use: marijuana. No alcohol use. No recent travel. Is a local resident. FAMILY HISTORY No significant family medical history. ADDITIONAL NOTES The nursing notes have been reviewed with agreement regarding the chief complaint, HPI, ROS, PMH and patient medications and allergies. PHYSICAL EXAM Vital Signs: 08/29/2016 17:26 BP: 135/85. HR: 107. RR: 18. O2 saturation: 100%. Temp: 98.6 F. Have been reviewed as abnormal and appear to be correct. Blood pressure normal. Tachycardic. Respiratory rate normal. Temperature normal. Oxygen saturation normal. Appearance: Alert. Oriented X3. Anxious. No acute distress. (tech Paola in during exam and procedure, for operating room technologist and assistance). Eyes: Pupils equal, round and reactive to light. EOM intact. Skin: Large area of swelling with tenderness to the area of the genitalia (R labia majora). No heat or lymphangitis. No healing cellulitis. No healing abscess. Extremities: Normal inspection. Extremities atraumatic. No lower extremity edema. Neuro: Oriented X 3. No motor deficit. No sensory deficit. PROGRESS AND PROCEDURES Incision & Drainage of Abscess: The abscess is located in the labia (Right). The risks of the procedure, benefits and alternatives were explained. Consent was obtained. Local anesthesia provided using 1% lidocaine. Skin cleansed with Betadine. The abscess was incised with a #11 surgical blade. A large amount of pus was drained. Cavity was irrigated with saline and packed with gauze. Estimated blood loss: 30 mL. ( pt tolerated procedure well without issues, and thanked me several times stating that was best she has felt since Friday when she got it). Course of Care: pt has brief hemanth, nothing alarming, see report for full details. Patient counseled in person regarding the patient's stable condition and diagnosis. 18:07. Differential Diagnosis: Other possible considerations: bartholin gland abscess, cyst, cellulitis. Above considerations are based on history and physical exam. Differential diagnosis was discussed with patient. Disposition: Discharged home in good and improved condition (18:07). Condition: good and stable. CLINICAL IMPRESSION Single deep Bartholin's abscess with incision and drainage. INSTRUCTIONS Warnings: GENERAL WARNINGS: Return or contact your physician immediately if your condition worsens or changes unexpectedly, if not improving as expected, or if other problems arise. Specifically return if problem worsens. Follow-up: Follow up with your doctor in two days as needed and for packing removal. Call for an appointment. Summary of care provided to patient. Understanding of the discharge instructions verbalized by patient. Follow-up with: Jamal Apodaca MD, Obstetrics/Gynecology, , [facility], [address] [place] [address] Follow up in about two days as needed. Call for an appointment. Summary of care provided to patient. (Electronically signed by Sariah Malik A.R.N.P. 08/29/2016 19:14)
--- NOTE | 2016-09-01 19:21 | ED MAR SUMMARY ---
..... Medication Administration Record [facility] [address] [place] [address] Patient: CARLY WOODS Visit ID: [id number] 30y, F Weight: 81.6 kg Height/Length: 62 in BMI: 32.9 ALLERGIES: Sulfa Medications Given 17:41 08/29/2016 Mattie Michaels R.N. Medication Administered: LIDOCAINE [INJECTION], Dose: 1 % Injectable Injection. Medication Ordered: Lidocaine Injection 1% plain (place at bedside).
--- NOTE | 2016-09-01 19:21 | ED MED RECONCILIATION SUMMARY ---
Patient: CARYL WOODS Medication Reconciliation Report [facility] VisitID: [id number] [address] [place] [address] 30y, F Registration Date/Time: 08/29/2016 Weight: 81.6 kg Height/Length: 62 in. BMI: 32.9 ALLERGIES: Sulfa Medications The patient's Home Medications are listed below: THE FOLLOWING MEDICATIONS NEED TO BE RECONCILED: Augmentin Oral Hydrocodone-Acetaminophen Oral Vitamins Oral The source(s) of the original Home Medication information: Not obtained. The following Medications were given to the patient in the Emergency Department: Lidocaine [Injection] Injection 1 %, administered: 08/29/2016 5:41:00 PM The following Medications were prescribed to the patient: None.
--- NOTE | 2016-09-01 19:21 | ED MED RECONCILIATION SUMMARY ---
Patient: CARLY WOODS Medication Reconciliation Report [facility] VisitID: [id number] [address] [place] [address] 30y, F Registration Date/Time: 08/29/2016 Weight: 81.6 kg Height/Length: 62 in. BMI: 32.9 ALLERGIES: Sulfa Medications The patient's Home Medications are listed below: THE FOLLOWING MEDICATIONS NEED TO BE RECONCILED: Augmentin Oral Hydrocodone-Acetaminophen Oral Vitamins Oral The source(s) of the original Home Medication information: Not obtained. The following Medications were given to the patient in the Emergency Department: Lidocaine [Injection] Injection 1 %, administered: 08/29/2016 5:41:00 PM The following Medications were prescribed to the patient: None.
--- NOTE | 2016-09-01 19:21 | ED MAR SUMMARY ---
..... Medication Administration Record [facility] [address] [place] [address] Patient: CARLY WOODS Visit ID: [id number] 30y, F Weight: 81.6 kg Height/Length: 62 in BMI: 32.9 ALLERGIES: Sulfa Medications Given 17:41 08/29/2016 Mattie Michaels R.N. Medication Administered: LIDOCAINE [INJECTION], Dose: 1 % Injectable Injection. Medication Ordered: Lidocaine Injection 1% plain (place at bedside).
--- NOTE | 2016-09-01 19:21 | ED DISCHARGE INSTRUCTIONS ---
Patient: CARLY WOODS General Instructions [facility] VisitID: [id number] [place] [address] 30y, F Registration Date/Time: 08/29/2016 Single deep Bartholin's abscess with incision and drainage. INSTRUCTIONS Warnings: GENERAL WARNINGS: Return or contact your physician immediately if your condition worsens or changes unexpectedly, if not improving as expected, or if other problems arise. Specifically return if problem worsens. Follow-up: Follow up with your doctor in two days as needed and for packing removal. Call for an appointment. Summary of care provided to patient. Understanding of the discharge instructions verbalized by patient. Follow-up with: Jamal Apodaca MD, Obstetrics/Gynecology, , [facility], [address] [place] [address] Follow up in about two days as needed. Call for an appointment. Summary of care provided to patient. ADDITIONAL INFORMATION Abscess [Incision & Drainage] An abscess (sometimes called a boil) occurs when bacteria get trapped under the skin and begin to grow. Pus forms inside the abscess as the body responds to the bacteria. An abscess can occur with an insect bite, ingrown hair, blocked oil gland, pimple, cyst, or puncture wound. Treatment of your abscess has required an incision to drain the pus. If the abscess pocket was large, a gauze packing may have been inserted. This will need to be removed and possibly replaced on your next visit. Antibiotics are not required in the treatment of a simple abscess, unless the infection is spreading into the skin around the wound (known as cellulitis). Healing of the wound will take about one to two weeks depending on the size of the abscess. Healthy tissue will grow from the bottom and sides of the opening until it seals over. Home Care: The wound may drain for the first two days. Cover the wound with a clean dry dressing. If the dressing becomes soaked with blood or pus, change it. If a gauze packing was placed inside the abscess cavity, you may be advised to remove it yourself. You may do this in the shower. Once the packing is removed, you should wash the area in the shower or bath 3 to 4 times a day, until the skin opening has closed. If you were prescribed antibiotics, take them as directed until they are all gone. You may use acetaminophen (Tylenol) or ibuprofen (Motrin, Advil) to control pain, unless another pain medicine was prescribed. [ NOTE: If you have liver disease or ever had a stomach ulcer, talk with your doctor before using these medicines.] Follow Up with your doctor as advised by our staff. If a gauze packing was inserted in your wound, it should be removed in 1-2 days. Check your wound every day for the signs of worsening infection listed below. Get Prompt Medical Attention if any of the following occur: Increasing redness or swelling Red streaks in the skin leading away from the wound Increasing local pain or swelling Continued pus draining from the wound two days after treatment Fever of 100.4F (38C) or higher, or as directed by your healthcare provider Bartholin's Cyst [I&D] The Bartholin's glands are very small glands found inside the labia (vaginal lips). The glands produce fluid to help keep the vagina moist. When the opening of a Bartholins gland becomes blocked, the gland will swell and form a cyst. A cyst feels like a firm lump within the labia, from to 2 in size. It is usually not painful, unless it becomes infected. There are two common methods for draining the fluid and preventing return of the cyst: -- A small rubber tube (Word catheter) may have been inserted into the cyst. This will probably fall out on its own, or can be removed by your doctor in 2-3 weeks. -- A stitch may be used to hold the incision open and prevent it from healing closed too soon. Most infections of Bartholins cysts are due to bacteria that are normally present in the vagina. But, sometimes a sexually transmitted disease (STD) such as Gonorrhea can cause the infection. A culture test of the fluid can determine this. Home Care: 1) Sit in a tub filled with about 6 inches of very hot water. Allow the water to run in order to keep it hot for a total of 10-15 minutes. Repeat this three times a day until pain is relieved. 2) You may use acetaminophen (Tylenol) or ibuprofen (Motrin, Advil) to control pain, unless another medicine was prescribed. [ NOTE : If you have chronic liver or kidney disease or ever had a stomach ulcer or GI bleeding, talk with your doctor before using these medicines.] 3) Avoid sexual intercourse until all of the swelling and pain is gone, any tubes or stitches have been removed, and you have finished any antibiotics that were given. 4) If the cause of your infection is found to be due to an STD, it will be necessary for your sexual partner to be treated. He should contact his own doctor or clinic, or go to the local Public Health Department. Follow Up with your doctor or as advised by our staff. If a culture test was taken, you may call in two days for the result. If a rubber catheter was inserted and it falls out before your appointment to have it removed, call us or your doctor for advice. Get Prompt Medical Attention if any of the following occur: -- Increasing redness, pain or swelling of the labia -- Fever over 100.5' F (38.0' C) after two days of treatment -- Increasing pain in the lower abdomen -- New rash or joint pain You have been given the following additional information: Abscess, Incision And Drainage Bartholin's Cyst (I And D) (Electronically signed by Sariah Malik A.R.N.P. 08/29/2016 19:14)
== END 2016-08-29 18:15 | disposition home or self-care (01) ==
LOC: ED SRH 17:19
DX: O23.599 Infection of other part of genital tract in pregnancy, unspecified trimester (principal); N75.1 Abscess of Bartholin's gland; Z3A.00 Weeks of gestation of pregnancy not specified; Z87.891 Personal history of nicotine dependence; Z88.2 Allergy status to sulfonamides